=== PATIENT | male | born 1995 | race Caucasian/White ===

== ENCOUNTER 2019-07-08 05:00 | Day surgery (SDC) | payer OTHER ==
[~2019-07-08] VITALS: Ht 180.3 cm; Wt 56.8 kg
[~2019-07-08 05:00] MED LIST: CeFAZolin 2 GM/DEXTROSE 50 ML IV ONE; RINGERS SOLUTION,LACTATED 1,000 ML IV ONE
[2019-07-08] MEDS ORDERED: PROPOFOL 1% 20 ML VIAL IVP ONE (05:01)
[2019-07-08] MEDS ORDERED: KETOROLAC TROMETHAMINE 60 MG/2 ML VIAL IM ONE (05:01)
[2019-07-08] MEDS ORDERED: SUCCINYLCHOLINE CHLORIDE 20 MG/ML 10 ML VIAL IVP ONE (05:01)
[2019-07-08] MEDS ORDERED: LIDOCAINE/PF 2% 5 ML VIAL IM ONE (05:01)
[2019-07-08] MEDS ORDERED: MIDAZOLAM HCL 2 MG/2 ML VIAL IVP ONE (05:01)
[2019-07-08] MEDS ORDERED: FentaNYL CITRATE-PF 100 MCG/2 ML VIAL IVP ONE (05:01)
[2019-07-08 05:55] LABS: BASOPHILS % (AUTO) 0.6 % (0.0-2.0); EOSINOPHILS % (AUTO) 7.3 % (1.0-6.0); HEMATOCRIT 47.4 % (41-53); LYMPHOCYTES % (AUTO) 30.7 % (22.0-44.0); MEAN CORPUSCULAR HEMOGLOBIN 30.9 pg (26.0-34.0); MEAN CORPUSCULAR HGB CONC 33.8 G/dL (31.0-37.0); MEAN CORPUSCULAR VOLUME 91 fL (80-100); MONOCYTES # (AUTO) 0.4 K/uL (0.1-1.0); NEUTROPHILS # (AUTO) 3.6 K/uL (1.8-7.7); NEUTROPHILS % (AUTO) 55.4 % (40.0-70.0); PLATELET COUNT (AUTO) 208 K/uL (150-450); RED BLOOD CELL COUNT(AUTO) 5.19 MIL/uL (4.50-5.90); RED CELL DISTRIBUTION WIDTH 13.6 % (11.5-14.5)
[2019-07-08] MEDS ORDERED: VANCOMYCIN HCL 1 GM/VIAL ONE (06:06)
[2019-07-08] MEDS ORDERED: BUPIVACAINE HCL/PF 0.25% 30 ML VIAL ONE (06:06)
[2019-07-08] MEDS ORDERED: MICROFIBRILLAR COLLAGEN 1 GM PACKAGE TP ONE (06:06)
[2019-07-08] MEDS ORDERED: BUPIVACAINE LIPOSOME/PF 1.3%-13.3MG/ML SUSPENSION 10 ML VIAL INJ ONE (06:15)
[2019-07-08] MEDS ORDERED: FentaNYL CITRATE-PF 100 MCG/2 ML VIAL IVP PRN (06:45)
[2019-07-08] MEDS ORDERED: MEPERIDINE-PF 25 MG/ML VIAL IVP PRN (06:45)
[2019-07-08] MEDS ORDERED: HYDROmorphone 2 MG/ML SYRINGE IVP PRN (06:45)
[2019-07-08] MEDS ORDERED: CeFAZolin 2 GM/DEXTROSE 50 ML IV ONE (07:00)
[2019-07-08] MEDS ORDERED: MUPIROCIN CALCIUM 2% 22 GM OINTMENT ONE (07:09)
[2019-07-08] MEDS ORDERED: OXYGEN THERAPY IH SCH (08:00)
== END 2019-07-08 10:00 | disposition home or self-care (01) ==
LOC: SURGERY 05:00
PROVIDERS: ATTEND Orthopaedic Surgery
DX: S62.326A Displaced fracture of shaft of fifth metacarpal bone, right hand, initial encounter for closed fracture (principal); Z98.890 Other specified postprocedural states
CPT/HCPCS: 26615; 36415; 85025; C1716; J0330; J0690; J1885; J2250; J2704; J3010; J3370; J3490 ×2; J7120